=== PATIENT | female | born 2005 | race Caucasian/White ===

== ENCOUNTER 2023-05-25 11:03 | Inpatient (IN) | payer OTHER ==
[2023-05-25] MEDS ORDERED: miSOPROStoL 200 MCG TAB PO PRN (18:26)
[2023-05-25] MEDS ORDERED: LIDOCAINE 0.5% (PF) 5 MG/ML (50 ML SDV) SQ PRN (18:26)
[2023-05-25] MEDS ORDERED: CARBOPROST TROMETHAMINE 250 MCG/ML 1 ML AMP IM PRN (18:26)
[2023-05-25] MEDS ORDERED: TRANEXAMIC 1,000 MG/100ML-NACL 1,000 MG in EMPTY BAG 1 BAG IV PRN (18:26)
[2023-05-25] MEDS ORDERED: TERBUTALINE 1 MG/ML VIAL SQ PRN (18:26)
[2023-05-25] MEDS ORDERED: OXYTOCIN 10 UNIT/ML 1 ML VIAL IM PRN (18:26)
[2023-05-25] MEDS: DINOPROSTONE 10 MG INSERT.ER VAGINAL ONE (18:40)
[2023-05-25 18:52] LABS: Glucose,Whole Blood 68 mg/dL (70-110)
[2023-05-25 20:21] LABS: Basophils % (A) 0 %; Eosinophils # (A) 0.1 k/uL (0-0.7); Eosinophils % (A) 1 %; HCT 41.3 % (34.0-46.0); HGB 14.1 gm/dL (11.4-16.0); Lymphocytes # (A) 2.4 k/uL (1.0-4.8); Lymphocytes % (A) 14 %; MCH 30.9 pg (25.0-35.0); MCHC 34.2 g/dL (31.0-37.0); MCV 90.3 fL (80.0-100.0); Mean Platelet Volume 8.1; Monocytes # (A) 0.7 k/uL (0-1.0); Monocytes % (A) 4 %; Neutrophils # (A) 14.4 k/uL (1.3-7.7); Neutrophils % (A) 81 %; Platelet Count 221 k/uL (150-450); RBC 4.57 m/uL (3.80-5.40); RDW 12.8 % (11.5-15.5); WBC 17.9 k/uL (4.0-11.0)
[2023-05-25] MEDS: LACTATED RINGERS 1,000 ML IV SCH (23:27)
[2023-05-26] MEDS: OXYTOCIN 30 UNITS/500 ML NS 30 UNIT in SALINE 1 500ML.BAG IV SCH (05:12)
[2023-05-26] MEDS: NALBUPHINE 10 MG/ML (10 ML MDV) IV PRN (06:06)
[2023-05-26] MEDS ORDERED: ROPIVACAINE 5 MG/ML 30 ML VIAL ONE (09:01)
[2023-05-26] MEDS ORDERED: fentaNYL (PF) 50 MCG/ML 5 ML AMP ONE (09:01)
[2023-05-26] MEDS ORDERED: SODIUM CHLORIDE 0.9% 250 ML BAG ONE (09:01)
[2023-05-26] MEDS: METHYLERGONOVINE 0.2 MG/ML 1 ML AMP IM PRN (12:30)
--- NOTE | 2023-05-26 12:34 | P.HPOB ---
History of Present Illness H&P Date: 05/25/23 Chief Complaint: IUP at 39-0/7 weeks, GDM/A1 This is a 17 old 1 para 0 at 39 weeks of that presents to labor and delivery for induction of labor secondary to gestational diabetes A1, blood sugars have been well-controlled throughout the . Patient notes good movement notes an occasional contraction denies vaginal bleeding or loss of fluid. On blood work this patient is a type of O+, rubella status immune, hepatitis B surface and a negative, HIV negative, RPR nonreactive, group B strep culture is negative. Review of Systems Constitutional: Denies chills, Denies fatigue, Denies fever Ears, nose, mouth and throat: Denies headache Respiratory: Denies dyspnea Gastrointestinal: Denies constipation, Denies diarrhea, Denies nausea, Denies vomiting Genitourinary: Reports Past Medical History Past Medical History: No Reported History Additional Past Medical History / Comment(s): tonsilectony and adnoids removed when pt an infant History of Any Multi-Drug Resistant Organisms: None Reported Past Surgical History: No Surgical Hx Reported Past Psychological History: No Psychological Hx Reported Smoking Status: Former smoker Past Alcohol Use History: None Reported Past Drug Use History: None Reported - Past Family History Mother Family Medical History: No Reported History Medications and Allergies Home Medications Medication Instructions Recorded Confirmed Type Vit No.179/Iron/Folic 05/25/23 History [ Tablet] Allergies Allergy/AdvReac Type Severity Reaction Status Date / Time No Known Allergies Allergy Verified 05/25/23 18:03 Exam Osteopathic Statement: *. No significant issues noted on an osteopathic structural exam other than those noted in the History and Physical/Consult. Vital Signs Temp Pulse Resp BP Pulse Ox 05/25/23 18:02 98.4 F 76 16 141/65 97 Intake and Output 05/25/23 05/25/23 05/25/23 06:59 14:59 22:59 Other: Weight 69.853 kg Targeted physical exam is performed this date General is a well-nourished well- developed female in no acute distress, breathing is noted to be nonlabored, heart has a regular rate and rhythm, abdomen is gravid and appropriate for gestational age, and cervical exam she is 1/50/-3 station Cervidil was placed without difficulty, heart tones are noted to be category 1 and she is evonne irregularly. Results Result Diagrams: 05/25/23 20:00 Assessment and Plan (1) Term Current Visit: Yes Status: Acute Code(s): Z34.90 - ENCNTR FOR SUPRVSN OF NORMAL , UNSP, UNSP TRIMESTER SNOMED Code(s): 57378490 (2) GDM (gestational diabetes mellitus), class A1 Current Visit: Yes Status: Acute Code(s): O24.410 - GESTATIONAL DIABETES MELLITUS IN , DIET CONTROLLED SNOMED Code(s): 01445013 Plan: 17-year-old G1, P0 at 39-0/7 weeks presents for induction of labor secondary to GDM A1. Patient is admitted and Cervidil induction of labor has begun. Options are reviewed with patient including Nubain, nitrous, epidural. Patient will consider.
[2023-05-26] MEDS ORDERED: BENZOCAINE/MENTHOL SPRAY 1 GM/SPRAY AEROSOL TOPICAL PRN (12:36)
[2023-05-26] MEDS ORDERED: SIMETHICONE 80 MG CHEWABLE PO PRN (12:36)
[2023-05-26] MEDS ORDERED: ZOLPIDEM 5 MG TAB PO PRN (12:36)
[2023-05-26] MEDS ORDERED: LANOLIN CREAM 5 GM TUBE TOPICAL PRN (12:36)
[2023-05-26] MEDS ORDERED: diphenhydrAMINE 50 MG CAP PO PRN (12:36)
[2023-05-26] MEDS ORDERED: diphenhydrAMINE 50 MG/ML 1 ML VIAL IVP PRN ×2 (12:36)
[2023-05-26] MEDS ORDERED: HYDROCORTISONE 2.5% RECTAL CREAM 30 GM TUBE RECTAL PRN (12:36)
[2023-05-26] MEDS ORDERED: diphenhydrAMINE 25 MG CAP PO PRN (12:36)
--- NOTE | 2023-05-26 12:36 | P.PROBDLV ---
Vaginal Delivery Note - . Vaginal Delivery Note: Findings: Viable female delivered at 1218, weight of 7 pounds 6.5 ounces, Apgars of 9 and 9 at 1 and 5 minutes respectively. This is a 17-year-old 1 para 0 at 39-0/7 weeks that presented to labor and delivery last evening for scheduled Cervidil induction of labor secondary to gestational diabetes diet-controlled, A1. Patient was admitted Cervidil was placed without difficulty. Patient did progress through the night and was noted to be 4 cm this morning. Patient had spontaneous rupture of membranes around 350. Patient was very uncomfortable and did request an epidural. Patient progressed quickly to complete after epidural was placed and began pushing. Patient had a normal spontaneous vaginal delivery of a viable female at 1218, weight of 7 pounds 6.5 ounces, Apgars of 9 and 9 at 1 and 5 minutes respectively. After 2-minute delay the umbilical cord was doubly clamped and cut and the placenta was delivered spontaneously intact with a three-vessel cord being noted. No vaginal lacerations were appreciated inspection of the vaginal vault. Large gush of blood was noted after delivery of the placenta therefore Methergine was given IM. Uterus noted to be firm below the umbilicus and the bladder was drained for approximately 100 cc of clear yellow urine. All counts were known to be correct x 2 at the end of the delivery. Patient and tolerated delivery well and are resting comfortably.
[2023-05-26] MEDS ORDERED: OXYTOCIN 30 UNITS/500 ML NS 30 UNIT in SALINE 1 500ML.BAG IV SCH (12:45)
[2023-05-26] MEDS: IBUPROFEN 600 MG TAB PO SCH (12:53)
[2023-05-26] MEDS: SENNOSIDES-DOCUSATE SODIUM 1 EACH TAB PO SCH (21:23)
[2023-05-27] MEDS: ACETAMINOPHEN TAB 325 MG TAB PO PRN (08:22)
--- NOTE | 2023-05-27 12:14 | P.DS ---
Providers Date of admission: 05/25/23 17:44 Expected date of discharge: 05/27/23 Attending physician: Kristie Barry Primary care physician: Stated None - Discharge Diagnosis(es) (1) Term Current Visit: Yes Status: Acute (2) GDM (gestational diabetes mellitus), class A1 Current Visit: Yes Status: Acute (3) Status post normal vaginal delivery Current Visit: Yes Status: Acute Hospital Course: This is a 17 yo G1 now P1 that presented to labor and delivery on 05/25 for Cervidil induction of labor. Patient had been receiving routine care with a diagnosis of gestational diabetes A1. Blood sugars were well-controlled with diet alone. For full details in this patient please the dictated history and physical. Patient was admitted Cervidil was placed without difficulty. Patient made progress through the night and was noted to be 4 cm in the morning. Spontaneous rupture of membranes occurred around 350. Cervidil has been removed. Patient was quite uncomfortable and did request epidural placement. Epidural was placed without difficulty by the anesthesia department. Patient quickly progressed to complete began pushing and had a normal spontaneous vaginal delivery of a viable female infant at 1218, weight of 7 pounds 6.5 ounces, Apgars of 9 and 9 at 1 and 5 minutes respectively. Patient's course has been uneventful. This day #1 she is ambulating and voiding without difficulty. She is tolerating a regular diet without nausea or vomiting. States her pain is well-controlled. She denies concerns and would like discharge home. Patient Condition at Discharge: Good Plan - Discharge Summary New Discharge Prescriptions: No Action Vit No.179/Iron/Folic [ Tablet] Discharge Medication List Vit No.179/Iron/Folic [ Tablet] 05/25/23 [History] Follow up Appointment(s)/Referral(s): Kristie Barry DO [Doctor of Osteopathic Medicine] - 6 Weeks Patient Instructions/Handouts: Vaginal Delivery (DC), Vaginal Delivery (GEN) Activity/Diet/Wound Care/Special Instructions: No intercourse, tampons or douching. No heavy lifting greater than a gallon of milk. No driving for two weeks. Call with any fever, shakes or chills, with any pain not alleviated by over the counter meds, or with any quesions or concerns. Discharge Disposition: HOME SELF-CARE
[2023-05-28 01:53] VITALS: RESP 16
[2023-05-28 11:29] VITALS: BP 122/73; PULSE 99; TEMP 98.4
== END 2023-05-28 15:49 | disposition home or self-care (01) | DRG 560 ==
LOC: 4FBP 17:44
PROVIDERS: ADMIT Obstetrics & Gynecology Obstetrics; ATTEND Obstetrics & Gynecology Obstetrics
PROC: 10E0XZZ Delivery of Products of Conception, External Approach (ICD-10-PCS; principal; 2023-05-26)
PROC: 3E0DXGC Introduction of Other Therapeutic Substance into Mouth and Pharynx, External Approach (ICD-10-PCS; 2023-05-26)
DX: O24.420 Gestational diabetes mellitus in childbirth, diet controlled (principal); Z87.891 Personal history of nicotine dependence; Z3A.39 39 weeks gestation of pregnancy; Z37.0 Single live birth
CPT/HCPCS: 85025; 86850; 86900; 86901